=== PATIENT | female | born 1965 | race Caucasian/White ===

== ENCOUNTER 2017-11-28 20:24 | Emergency (ER) | payer OTHER, MEDICAID ==
[2017-11-28] MEDS: HYDROCODONE/APAP (5/325) TAB PO (20:47)
== END 2017-11-28 22:22 | disposition home or self-care (01) ==
LOC: FTE 20:24
DX: S90.32XA Contusion of left foot, initial encounter (principal); M77.32 Calcaneal spur, left foot; I10 Essential (primary) hypertension; E11.9 Type 2 diabetes mellitus without complications; W01.0XXA Fall on same level from slipping, tripping and stumbling without subsequent striking against object, initial encounter; Y92.9 Unspecified place or not applicable
CPT/HCPCS: 73610; 73630-LT; 99283-25

== ENCOUNTER 2018-07-06 15:54 | Emergency (ER) | payer OTHER | END 2018-07-06 20:48 | disposition home or self-care (01) | LOC: E/R 15:54 | DX: G51.0 Bell's palsy (principal); D32.9 Benign neoplasm of meninges, unspecified; I10 Essential (primary) hypertension; R40.2142 Coma scale, eyes open, spontaneous, at arrival to emergency department; R40.2362 Coma scale, best motor response, obeys commands, at arrival to emergency department; R40.2252 Coma scale, best verbal response, oriented, at arrival to emergency department; Z79.4 Long term (current) use of insulin; Z86.73 Personal history of transient ischemic attack (TIA), and cerebral infarction without residual deficits | CPT/HCPCS: 70450; 82962; 99284-25 ==